=== PATIENT | female | born 1960 | race Caucasian/White ===

== ENCOUNTER → 2019-02-11 | Outpatient (CLI) | payer SELFPAY ==
[~2019-02-11] MED LIST: ALBU90OI61; DIPATR; DIPATR PO; LEVO-T150 MCG; LEVSOD137 PO; Omeprazole20 M1 PO
== END | disposition home or self-care (01) ==
LOC: LAB 13:51 → LAB SHORT 13:51
DX: J02.9 Acute pharyngitis, unspecified (principal)
CPT/HCPCS: 87070

== ENCOUNTER → 2020-06-01 | Outpatient (CLI) | payer OTHER ==
[~2020-06-01] MED LIST changes: +ALBU90OI INH; +LEVSOD112 PO
[2020-06-04 15:07] LABS: HPV 16 Negative (Negative); HPV 18 Negative (Negative); HPV OTHER HR TYPES Negative (Negative)
== END ==
LOC: LAB 18:44 → LAB SHORT 18:44
PROVIDERS: Registered Nurse
DX: Z12.4 Encounter for screening for malignant neoplasm of cervix (principal)
CPT/HCPCS: 87624; G0123

== ENCOUNTER → 2020-08-24 | Outpatient (CLI) | payer OTHER | END | disposition home or self-care (01) | LOC: PLD 10:51 → LAB SHORT 10:51 | DX: L57.0 Actinic keratosis (principal) | CPT/HCPCS: 88305 ==

== ENCOUNTER → 2021-01-06 | Outpatient (CLI) | payer OTHER ==
[2021-01-06 19:15] LABS: U Amphetamine Screen Not Detected; U Barbituate Screen Not Detected; U Benzodiazapine Screen Not Detected; U Buprenorphine Screen Not Detected; U Cannabinoids Screen Not Detected; U Cocaine Screen Not Detected; U Methadone Screen Not Detected; U Methamphetamine Screen Not Detected; U Opiates Screen Not Detected; U Oxycodone Screen Not Detected; U Phencyclidine Screen Not Detected; U Propoxyphene Screen Not Detected
[2021-01-17 13:10] LABS: COTININE <10.0 ng/mL (.); NICOTINE <10.0 ng/mL (.)
== END | disposition home or self-care (01) ==
LOC: LAB 15:58 → LAB SHORT 15:58 → LAB FUT 11-17 09:05 → EDSTATUS 11-17 09:05
PROVIDERS: Registered Nurse
DX: Z01.812 Encounter for preprocedural laboratory examination (principal)
CPT/HCPCS: G0480

== ENCOUNTER → 2023-03-21 | Outpatient (CLI) | payer OTHER | END | disposition home or self-care (01) | LOC: LAB 10:15 → LAB SHORT 10:15 | DX: N39.0 Urinary tract infection, site not specified (principal) | CPT/HCPCS: 87077; 87086; 87186 ==

== ENCOUNTER → 2023-06-03 | Outpatient (CLI) | payer OTHER ==
[~2023-06-03] MED LIST changes: +Aspir 8181 MG PO
== END ==
LOC: LAB 09:55 → LAB SHORT 09:55
DX: J31.2 Chronic pharyngitis (principal)
CPT/HCPCS: 87081

== ENCOUNTER 2023-06-15 08:47 | Day surgery (SDC) | payer OTHER ==
[~2023-06-15] VITALS: Ht 167.6 cm; Wt 102.5 kg
[2023-06-15 11:16] VITALS: BP 117/64
--- NOTE | 2023-06-15 12:15 | NUR ---
06/15/23 1215 Mary Nieves IV WNL, PT TOLERATED WELL.
== END 2023-06-15 11:50 | disposition home or self-care (01) ==
LOC: ORSCSDS 08:47
PROVIDERS: Podiatrist Foot & Ankle Surgery
PROC: 0HTRXZZ Resection of Toe Nail, External Approach (ICD-10-PCS; principal; 2023-06-15 10:15)
DX: L60.0 Ingrowing nail (principal); G47.33 Obstructive sleep apnea (adult) (pediatric); Z87.891 Personal history of nicotine dependence; K21.9 Gastro-esophageal reflux disease without esophagitis; E03.9 Hypothyroidism, unspecified; E78.5 Hyperlipidemia, unspecified; E66.9 Obesity, unspecified; Z68.36 Body mass index [BMI] 36.0-36.9, adult; Z79.899 Other long term (current) drug therapy
CPT/HCPCS: A9270; J0171; J0690; J2250; J2704; J2795